=== PATIENT | female | born 1985 | race American Indian/Alaskan Native ===

== ENCOUNTER 2017-01-02 16:34 | Emergency (ER) | payer OTHER ==
[2017-01-02 16:44] VITALS: BP 132/64
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
[2017-01-02] MEDS ORDERED: FLEXERIL PO ONE (20:16)
[2017-01-02] MEDS ORDERED: NORCO 5/325 PO ONE (20:16)
== END 2017-01-02 20:35 | disposition home or self-care (01) ==
LOC: ED 16:34
DX: G44.319 Acute post-traumatic headache, not intractable (principal); M54.2 Cervicalgia; M54.6 Pain in thoracic spine; V89.0XXA Person injured in unspecified motor-vehicle accident, nontraffic, initial encounter; Y92.488 Other paved roadways as the place of occurrence of the external cause; Y93.89 Activity, other specified; Y99.9 Unspecified external cause status
CPT/HCPCS: 70450; 72125; 87591